=== PATIENT | male | born 1980 | race Caucasian/White ===

== ENCOUNTER 2018-03-06 08:00 | Observation (INO) | payer BC ==
[2018-03-06] MEDS ORDERED: Diltiazem IV* 5 MG/ML 5 ML VIAL (for loading dose/IV Push) (25 MG) ONE (08:17)
[2018-03-06] MEDS ORDERED: Diltiazem IV* 5 MG/ML 5 ML VIAL (for loading dose/IV Push) (25 MG) IV SLOW PU ONE (08:19)
[2018-03-06] MEDS ORDERED: NS 0.9% 1000 ML*IV.FLUID IV ONE (08:25)
--- NOTE | 2018-03-06 08:25 | ED ---
Palpitations / Dysrhythmia - HPI Summary HPI Summary: This patient is a 38 year old M presenting to [facility] accompanied by and mother with a chief complaint of chest tightness since 714 this AM. Pt woke up feeling off, last night his equilibrium was off, this AM right before leaving home sx worsened, came to ED. Pt endorses tingling in his hands and arms , chest tightness, nausea, weakness, daily caffeine use in AM of 8 oz coffee. Pt denies current sx of chest pressure, fever, chills, and recent weight fluctuations. PMHx pinched nerve in neck for which he takes no medication. FHx sister afib, thyroid issues, mother has thyroid issues. - History of Current Complaint Chief Complaint: EDDysrhythmPalp Time Seen by Provider: 03/06/18 08:12 Hx Obtained From: Patient Onset/Duration: Gradual Onset, Lasting Hours Timing: Constant Severity Initially: Moderate Severity Currently: Moderate Character: Fast, Irregular Aggravating: Nothing Alleviating: Nothing Associated Signs & Symptoms: Lightheadedness, Nausea - Allergy/Home Medications Allergies/Adverse Reactions: Allergies Allergy/AdvReac Type Severity Reaction Status Date / Time No Known Allergies Allergy Verified 03/06/18 08:10 Home Medications: Home Medications NK [No Home Medications Reported] 03/06/18 [History Confirmed 03/06/18] PMH/Surg Hx/FS Hx/Imm Hx Endocrine/Hematology History: Denies: Other Endocrine/Hematological Disorders Respiratory History: Denies: Other Respiratory Problems/Disorders Sensory History: Denies: Hx Contacts or Glasses Opthamlomology History: Denies: Hx Contacts or Glasses EENT History: Denies: Hx Deafness Neurological History: Reports: Other Neuro Impairments/Disorders - pinched nerve in neck - Surgical History Surgery Procedure, Year, and Place: none Infectious Disease History: No Infectious Disease History: Denies: Traveled Outside the [place] in Last 30 Days - Family History Known Family History: Positive: Other - thyroid, Afib - Social History Lives: With Family Alcohol Use: None Hx Substance Use: Yes Substance Use Type: Reports: Marijuana Hx Tobacco Use: No Smoking Status (MU): Never Smoked Tobacco Review of Systems Negative: Fever, Chills Negative: Erythema Negative: Sore Throat Positive: Palpitations, Chest Pain - tightness Negative: Shortness Of Breath, Cough Positive: Nausea. Negative: Abdominal Pain, Vomiting Negative: dysuria, hematuria Negative: Myalgia, Edema Negative: Rash Neurological: Other - NEGATIVE: Dizziness All Other Systems Reviewed And Are Negative: Yes Physical Exam - Summary Physical Exam Summary: Constitutional: Well-developed, Well-nourished, Alert. (-) Distressed Skin: Warm, Dry HENT: Normocephalic; Atraumatic Eyes: Conjunctiva normal Neck: Musculoskeletal ROM normal neck. (-) JVD, (-) Stridor, (-) Tracheal deviation Cardio: Irregularly irregular pulse, Heart sounds normal; Intact distal pulses; The pedal pulses are 2+ and symmetric. Radial pulses are 2+ and symmetric. (-) Murmur Pulmonary/Chest wall: Effort normal. (-) Respiratory distress, (-) Wheezes, (-) Rales Abd: Soft, (-), epigastric tenderness, (-) Distension, (-) Guarding, (-) Rebound Musculoskeletal: (-) Edema Lymph: (-) Cervical adenopathy Neuro: Alert, Oriented x3 Psych: Anxious appearing Triage Information Reviewed: Yes Vital Signs On Initial Exam: Initial Vitals Temp Pulse Resp BP Pulse Ox 97.9 F 111 13 151/115 100 03/06/18 08:08 03/06/18 08:08 03/06/18 08:08 03/06/18 08:08 03/06/18 08:08 Vital Signs Reviewed: Yes Diagnostics - Vital Signs Vital Signs Temp Pulse Resp BP Pulse Ox 03/06/18 08:08 97.9 F 111 13 151/115 100 - Laboratory Result Diagrams: 03/06/18 08:21 03/06/18 08:21 Lab Statement: Any lab studies that have been ordered have been reviewed, and results considered in the medical decision making process. - Radiology CXR Xray Interpretation: No Acute Changes Radiology Interpretation Completed By: Radiologist - No active cardiopulmonary disease is noted. Dr. Flores has reviewed this report. - EKG 0811 Cardiac Rate: Tachycardia - 119 EKG Rhythm: Atrial Fibrillation - rapid ST Segment: Normal EKG Interpretation: No STEMI, Rapid atrial fibrillation Re-Evaluation - Re-Evaluation First Eval Re-Evaluation Time: 08:30 Change: Improved - Heart rate down to 90, still appears to be in AFib, chest tightness has resolved, but tingling in hands still present. Course/Dx - Course Course Of Treatment: EKG reveals rapid atrial fibrilation and tachycardia at 119 BPM, no STEMI. CXR was (-). Pt was given ASA, diltiazem, zofran, nl saline. Lactic acid 3.8. Glucose 145. [place] % 8.9 - Diagnoses Provider Diagnoses: Atrial fibrillation with rapid ventricular response, Chest pain - Physician Notifications Discussed Care Of Patient With: Giuliano Lehman Time Discussed With Above Provider: 10:00 Instructed by Provider To: Other - accepted admission - Critical Care Time Critical Care Time: 30-74 min - 35 Discharge - Sign-Out/Discharge Documenting (check all that apply): Patient Departure - Admission - Discharge Plan Condition: Fair Disposition: ADMITTED TO [facility] Referrals: No Primary Care Phys,NOPCP [Primary Care Provider] - - Billing Disposition and Condition Condition: FAIR Disposition: Admitted to [facility]
[2018-03-06] MEDS ORDERED: Ondansetron ODT TAB* 4 MG PO ONE (08:27)
[2018-03-06] MEDS ORDERED: Aspirin 81 mg CHEW TAB* 81 MG TAB.CHEW PO ONE (08:29)
[2018-03-06 08:31] LABS: ABS Basophils 0 10^3/ul (0-0.2); ABS Eosinophils 0.1 10^3/ul (0-0.6); ABS Lymphocytes 2.2 10^3/ul (1.0-4.8); ABS Monocytes 0.6 10^3/ul (0-0.8); ABS Neutrophils 3.5 10^3/ul (1.5-7.7); ABS Nucleated RBC 0 10^3/ul; Eosinophil % 1.5 % (0-6); Hematocrit 46 % (42-52); Lymphocyte % 34.3 % (25-47); Mean Corpuscular HGB Conc 35 g/dl (31-36); Mean Corpuscular Hemoglobin 29 pg (27-31); Mean Corpuscular Volume 84 fL (80-94); Mean Platelet Volume 6.8 um3 (7.4-10.4); Nucleated Red Blood Cells % 0.1; Platelet Count 331 10^3/ul (150-450); Red Blood Count 5.51 10^6/ul (4.00-5.40); Red Cell Distribution Width 14 % (10.5-15); White Blood Count 6.3 10^3/ul (3.5-10.8)
[2018-03-06 08:47] LABS: EGFR Non-African American 75.7 (>60)
[2018-03-06] MEDS ORDERED: Acetaminophen TAB* 325 MG PO PRN (09:47)
[2018-03-06] MEDS ORDERED: Ondansetron INJ* 2 MG/ML VIAL IV PRN (09:47)
[2018-03-06] MEDS ORDERED: Albuterol 2.5 MG/3 ML NEB.SOL* (0.083%) INH PRN (09:47)
[2018-03-06] MEDS ORDERED: Al Hydrox/Mg Hydrox/Simet LIQ* 30 ML UDC PO PRN (09:47)
--- NOTE | 2018-03-06 09:49 | RAD ---
Indication: Tachycardia. Single frontal view of the chest performed at 0855 hours was reviewed. No prior study is available.. No mediastinal shift is noted. Heart is of normal size and configuration. Lung kaufman appear clear. IMPRESSION: NO ACTIVE CARDIOPULMONARY DISEASE IS NOTED.
[2018-03-06] MEDS ORDERED: NS 0.9% 1000 ML* 1,000 ML IV SCH (10:00)
[2018-03-06] MEDS: Apixaban* 5 MG TAB PO SCH ×2 (11:10→21:14)
--- NOTE | 2018-03-06 12:01 | HP ---
CC: Dr. Barajas * ADMISSION HISTORY AND PHYSICAL: DATE OF ADMISSION: 03/06/18 PATIENT OF: Dr. Santiago Lehman, attending physician. PRIMARY CARE PROVIDER: None. ATTENDING HOSPITALIST WHILE PATIENT IN HOSPITAL: Santiago Lehman MD * ( DICTATED BY KORINA MATHEWS) CONSULTING NEGOTIATIONS DIRECTOR: Alejandra Barajas MD CHIEF COMPLAINT: Palpitation. HISTORY OF PRESENT ILLNESS: Mr. Herron is a 38-year-old gentleman, who carries no significant past medical history, who presented to the emergency room earlier this morning with complaints of palpitation that started earlier today. The patient notes that for the past few days, he has not been feeling very well. He feels weak at times, lightheaded, and it feels almost "like he is floating with no gravity." He denies any significant syncope, dizziness, chest pain, headache, or extremity weakness. He got up this morning to use the bathroom and he felt lightheaded, but again denies any chest pain or any other associated symptoms. He rested for a little bit and tried to get up again when he noticed some palpitation and some tightness feeling in his chest. He felt lightheaded; however, denies any syncopal episode or weakness. Given his ongoing symptoms, he called ambulance and presented to [facility] Emergency Room for evaluation. He was noted to have atrial fibrillation with rapid ventricular response at 160s per minute for which he was given a dose of diltiazem 20 mg intravenously. He noticed some improvement; however, he continued to have some palpitation feeling. The patient continued to have atrial fibrillation; however , his ventricular rate had responded and now running in the 70s and 80s per minute. Given his new-onset atrial fibrillation and his symptoms, we were asked to see the patient for further evaluation and to consider admission for observation in telemetry and possible cardioversion after Cardiology consultation. PAST MEDICAL HISTORY: As mentioned above, it was essentially unremarkable. He does note history of "a pinched nerve in his right neck" that bothers him on occasion usually when he moves his neck too much; however, he takes some muscle relaxant and low dose of steroids and usually it goes away. His last episode of that neck issue was about 2 weeks ago, but he is currently not taking any meds for it. PAST SURGICAL HISTORY: None. CURRENT MEDICATIONS: He does not take any medication on a regular basis at home. ALLERGIES: He has no known drug allergies. FAMILY HISTORY: He has family history of sister, who has SVTs and occasional AFib episodes; however, she is not on any rate-modifying medication or any anticoagulation therapy per her mom. He denies any history of coronary artery disease in the family. SOCIAL HISTORY: The patient is a nonsmoker, who drinks alcohol rarely. He drinks 1 to 2 cups of coffee per day. 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 He is and his , Sarah, is the surrogate decision making personnel. REVIEW OF SYSTEMS: See HPI, otherwise 14-point review of systems were examined and they were otherwise negative. PHYSICAL EXAMINATION GENERAL: He is a pleasant, healthy-appearing, middle-aged gentleman, in no acute distress or discomfort at the time of admission. VITAL SIGNS: Revealed blood pressure of 139/86, pulse of 70, respirations of 16 , O2 sat of 100% on 2 L oxygen, and temperature of 97.9. HEENT: Head is normocephalic, atraumatic. Sclerae anicteric. PERRLA. EOMs intact. Oropharynx is pink and moist. NECK: Supple. Trachea midline. No cervical adenopathy, thyromegaly, or JVD. LUNGS: Clear to auscultation bilaterally. HEART: Irregular rate and rhythm. Normal S1 and S2 without rubs, murmurs, or gallops. BACK: Normal curvature. No CVA tenderness. ABDOMEN: Soft, nontender, and nondistended. No hernias, masses, or hepatosplenomegaly. EXTREMITIES: Without cyanosis, clubbing, or edema. NEUROLOGIC: Grossly intact. He is awake, alert, and oriented x4. RECTAL: Deferred at this time. DIAGNOSTIC STUDIES/LAB DATA: CBC with white count of 6300, hemoglobin 16, hematocrit 46, and platelets of 331. His chemistry panel with sodium of 139, potassium 3.7, chloride 105, CO2 of 22, BUN of 20, creatinine of 1.09, his glucose is 145, lactic acid 3.8. LFTs within normal limits. Troponin is 0. T4 is 9 and TSH is pending at the time of admission. Accessory diagnostic data: EKG was done upon presentation to the ED revealed atrial fibrillation with ventricular rate of 112. There are no ST changes. Chest x-ray also done that showed no active cardiopulmonary disease. IMPRESSION: A 38-year-old gentleman with no significant past medical history, who presented to the emergency room with complaints of palpitation and chest tightness, who was found to have new onset of atrial fibrillation initially with a rapid ventricular response, but now with ventricular response in the 70s or 80s after a dose of diltiazem. ASSESSMENT AND PLAN: 1. New-onset atrial fibrillation with rapid ventricular response. The patient will be admitted for observation to telemetry. I have discussed the case with Dr. Barajas, who agreed to see the patient. We will keep him n.p.o. for the possibility of cardioversion later. I also will initiate anticoagulation therapy with Eliquis as of right now. He appears to be hemodynamically stable and have better ventricular rate control at this time, but he continued to have atrial fibrillation. We will obtain a trending series of troponin and repeat EKG as well. 2. History of cervical neuropathy, appears to be stable at this time. The patient has no complaints of neck pain or upper extremity weakness or numbness. 3. DVT prophylaxis. The patient is a low risk and we will encourage early ambulation and he will also be covered with Eliquis for anticoagulation therapy. 4. Code status. He is a full code. TIME SPENT: Approximately 60 minutes was spent admitting this patient with 50% of this time obtaining history and performing physical exam. I have discussed the case with my attending, who agreed to plan of care, and we will follow him up accordingly. KORINA MATHEWS [id number]/[facility] #: [id number] ANABELA
[2018-03-06] MEDS ORDERED: fentaNYL* 50 MCG/ML 2 ML VIAL (100 MCG VIAL) ONE (13:02)
[2018-03-06] MEDS ORDERED: Naloxone* 0.4 MG/ML 1 ML VIAL ONE (13:02)
[2018-03-06] MEDS ORDERED: Midazolam* 1 MG/ML 10 ML VIAL (10 MG) ONE (13:02)
[2018-03-06] MEDS ORDERED: Flumazenil* 0.1 MG/ML 5 ML MDV ONE (13:03)
--- NOTE | 2018-03-06 16:10 | TEE ---
Patient: ANTONIO ERICKSON [facility] Rec#: [id number] : 1980 Date: 03/06/2018 Age: 38y Height: 180.34 cm / 71.0 in Weight: 97.52 kg / 214.9 lbs Sex: M BSA: 2.17 Room#: 452 Type: Inpatient Referring: Rama Obrien Performing: Alejandra Barajas MD Reading: Alejandra Barajas MD Package Lift Operator: Trina Ward RDCS Nurse: Marley Araiza RN Transesophageal Echocardiogram Indication: A-fib BP: 130/71 HR: 106 Rhythm: A-Fib Findings History: Palpitations, new A-fib, cervical neuropathy. Technical Comments: The study quality is good. Completed at 1520. Left Ventricle: The left ventricular chamber size is normal. Global left ventricular wall motion and contractility are within normal limits. The left ventricle appears hyperdynamic. The estimated ejection fraction is greater than 65%. Left Atrium: There is no thrombus visualized in the left atrial appendage. Normal velocity noted. Right Ventricle: The right ventricular cavity size is normal. The right ventricular global systolic function is normal. Right Atrium: The right atrial cavity size is normal. There is no patent foramen ovale visualized. A patent foramen ovale is not demonstrated with color Doppler and agitated contrast. Aortic Valve: The aortic valve is trileaflet. There is no evidence of aortic regurgitation. There is no evidence of aortic stenosis. Mitral Valve: The mitral valve leaflets appear normal. There is mild mitral regurgitation. Multiple jets noted. There is no evidence of mitral stenosis. Tricuspid Valve: The tricuspid valve leaflets are normal. There is trace tricuspid regurgitation. Unable to estimate the right ventricular systolic pressure. There is no tricuspid stenosis. Pulmonic Valve: The pulmonic valve appears normal. There is a trace pulmonic regurgitation. There is no pulmonic stenosis. Pericardium: The pericardium appears normal. Aorta: There is no dilatation of the ascending aorta. There is no dilatation of the aortic arch. There is no dilation of the aortic root. Pulmonary Artery: The main pulmonary artery appears normal. Venous: The bicaval view was obtained and appears normal. The pulmonary veins appear normal in size. 3 out of 4 seen. The flow pattern of the pulmonary veins appear normal. [place] Procedures: History and physical as well as labs were reviewed. The patient was in a fasting state. Risks and benefits of the procedure, including alternatives, were discussed and written informed consent was obtained. The patient and/or their health care education courses sales representative expressed understanding of the procedure, risks and benefits. Baseline and continuous monitoring of blood pressure, heart rate, pulse oximetry and heart rhythm was performed throughout the procedure. The appropriate time-out procedure was performed as per [facility] protocol. The patient was placed in the left lateral decubitus position. The patient's posterior pharynx was anesthetized with 20ml of 2% viscous lidocaine. The patient received IV Midazolam with a total dose of10mg. The patient received IV Fentanyl with a total dose of 75mcg. An oral bite block was inserted for protection of oral dentition. The multiplane transesophageal echocardiogram probe was inserted through the posterior oropharynx and advanced into the esophagus without difficulty. Multiple 2D images were obtained of the heart and its related structures. Color flow Doppler was used for evaluation. Spectral Doppler was also used. The atrial septum was interrogated with color flow Doppler. At the conclusion of the procedure the probe was removed with continuous suction without complications. The patient tolerated the procedure with no apparent complications. Conclusions The left ventricular chamber size is normal. Global left ventricular wall motion and contractility are within normal limits. The left ventricle appears hyperdynamic. The estimated ejection fraction is greater than 65%. The right ventricular global systolic function is normal. There is no thrombus visualized in the left atrial appendage. There is no patent foramen ovale visualized. All valves appear structurally normal with normal excursion. There is mild mitral regurgitation. There is trace tricuspid regurgitation. NOTE: The patient was in atrial fibrillation at the start of the study, converted to sinus rhythm during the study. No prior echo to compare. Measurements Name Value Normal Range Aortic Annulus 2 cm (1.4 - 2.6) Ao root diameter (2D) 3.5 cm (2.1 - 3.5) Ascending Ao 2.7 cm (2.1 - 3.4) Name Value Normal Range MV E-wave Vmax 0.7 m/sec - MV deceleration time 217 msec - MV A-wave Vmax 0.5 m/sec - MV E:A ratio 1.42 ratio -
--- NOTE | 2018-03-06 21:59 | CONS ---
CC: Hospitalist Service CONSULTATION REPORT: DATE OF CONSULT: 03/06/18 REASON FOR CONSULT: Atrial fibrillation. CHIEF COMPLAINT: Weakness. HISTORY OF PRESENT ILLNESS: Mr. Herron was examined with his . He is a 38- year- old gentleman who has been very healthy. The patient states for 5 or 6 years he will have intermittent episodes where he will just feel a bit off-kilter and a little weak and lightheaded. This had occurred for the last 2 or 3 days this week and this morning he awoke feeling not quite himself and in the shower he became lightheaded and near syncopal. He then became aware that his heart rate was up as well. The patient presented to the emergency room and was found to be in atrial fibrillation with a rapid ventricular rate. The patient had 1 alcoholic beverage over the weekend. He does not drink excessively or frequently. He denies any recent use of excessive caffeine or caffeine analog products. His says he does not snore and only occasionally if he is very over tired, will he make any noises in the middle of the night. He does have a neck problem for which he has seen a chiropractor for years and he thinks there may be some association of the neck problem and the weakness. The patient has a past medical history of a pinched nerve in the neck followed by a chiropractor. PAST MEDICAL HISTORY: Negative for hypertension, diabetes, or diseases as a child. MEDICATIONS: He is on no medications at home. ALLERGIES: He has no known drug allergies. FAMILY HISTORY: Significant in that he has a sister with history of supraventricular tachycardia and paroxysmal AFib. There is no history of underlying atherosclerotic heart disease or other congenital heart disease. SOCIAL HISTORY: The patient works as an intern architect. He is . Rare alcohol intake. One to two cups of coffee a day. He is very physically active. Does a lot of activities with lifting. REVIEW OF SYSTEMS: A 14-point review of systems, see history of present illness. No recent fevers, chills, sweats. No coughing, change in bowel or bladder habits. He denies any trouble swallowing, change in appetite. No history of constipation or diarrhea. No hematuria or dysuria. He denies orthopnea, palpitations, racing of the heart. I could not get a clear history of vertigo, although his history of present illness at times is suspicious for this. His has never seen him walking as if he is off balance, although he describes feeling off balance. He denies any nausea or vomiting with these symptoms. All other 14-point review of systems was negative. PHYSICAL EXAM: The patient is 5 feet 11, weighs 217 pounds with a BMI of 30. On arrival to the emergency room, the patient's blood pressure was 151/115, pulse was 160 beats a minute and irregularly irregular, oxygen saturation 100% on room air and temperature 97.9. At the time I saw him, his blood pressure was 130/71, pulse was in the 80s, oxygen saturation 99% and afebrile. General appearance: Mild to moderately overweight young adult man in no acute distress. Psychologically pleasant and cooperative. Neurologically awake, alert and oriented to person, place and time. Cranial nerves II through XII intact. Grossly normal sensory and motor function in the upper and lower extremities and normal gait. Skin: Warm, dry. No cyanosis or rashes. HEENT: Pupils are equal and round. Mucous membranes moist. Neck without increased JVP appreciated. Good carotid pulses. No audible bruits. Lungs are clear with good effort. No wheezes, rales or rhonchi. Coronary: S1, S2 irregularly irregular without murmurs or rubs. Abdomen: Flat. Active bowel sounds. Soft, nontender. No hepatosplenomegaly or masses. Lower extremities are free of edema and warm with palpable posterior tibial pulses that were symmetrical. DIAGNOSTIC STUDIES/LAB DATA: The 12-lead ECG in the emergency room showed atrial fibrillation with a ventricular rate of 120 beats a minute, QRS axis of + 60, normal interventricular conduction times, normal ST segments. Chest x-ray from 03/06/18 showed no active disease. Labs showed sodium 139, potassium 3.7, chloride 105, bicarb 22, glucose 145, BUN 20, creatinine 1.09, lactic acid 3.8, ALT of 21. Troponin #1 of 0.00, troponin #2 of 0.00. TSH 0.85, free T4 of 9.0. D-dimer less than 200. White count 6.3, hematocrit 46, platelets 331,000. In summary, Олег Herron is a 38-year-old gentleman with a 6-year history of intermittent lightheadedness, today feeling near syncopal and found to be in atrial fibrillation, mildly tachycardic ventricular response with up to a 2 or 3 day history of feeling off-kilter. I planned for transesophageal echo-guided cardioversion as it is uncertain if he has been in this for a few days or not, the patient has not seen doctors in years as he is perceived he has been healthy. His blood pressure was high here which could give him a CHADS score of 1 as opposed to 0. He is very young. The patient underwent transesophageal echo and during the procedure, converted to sinus rhythm. His heart did not show any significant structural abnormalities. He had a normal ejection fraction, some mild valvular leaks and no evidence of underlying congenital or structural heart disease. In summary, Олег Herron is a 38-year-old gentleman who presented in atrial fibrillation with a rapid ventricular rate and feeling dizzy and lightheaded who has now converted to sinus rhythm during transesophageal echo. Олег was hypertensive on arrival to the emergency department but he was anxious, but he also has elevated sugar levels at a young age and with centripetal obesity. Олег is very young to have paroxysmal AFib and his triggers are uncertain. Differential would include metabolic syndrome. He may have some mild sleep apnea as well based on conversations with his . The intermittent episodes of feeling off-kilter could be related to AFib, but it could also be related to glucose levels and as he has not followed with a primary care physician we do not have any labs or notes to corroborate. PLAN/RECOMMENDATIONS: It would be safest to leave Олег for a month on oral anticoagulants. I would advise Олег to eat a heart healthy diet, watching concentrated sweets and carbohydrates and get a repeated fasting glucose level in the future. I see no contraindications to regular exercise which Олег was concerned about, but he may want to proceed with more regular exercise. An outpatient sleep study or at least an overnight oximetry may be of benefit for Олег to screen for the possibility of sleep apnea. The pinched nerve could change vagal tone and be related to the AFib, but it is uncertain. From a cardiac standpoint, I think he should follow up with Cardiology within the next month. We could consider getting an outpatient event monitor as his symptoms appear to be nearly asymptomatic. Additional recommendations can be made pending his clinical course and response to the above measures. Thank you for allowing me to assist in Олег's care. [id number]/[facility] #: [id number] [facility]ITALBhargavi
[2018-03-07 06:58] LABS: ABS Basophils 0 10^3/ul (0-0.2); ABS Eosinophils 0.1 10^3/ul (0-0.6); ABS Lymphocytes 2.2 10^3/ul (1.0-4.8); ABS Monocytes 0.6 10^3/ul (0-0.8); ABS Neutrophils 4.8 10^3/ul (1.5-7.7); ABS Nucleated RBC 0 10^3/ul; Eosinophil % 1.5 % (0-6); Hematocrit 42 % (42-52); Hemoglobin 14.5 g/dl (14.0-18.0); Lymphocyte % 28.8 % (25-47); Mean Corpuscular HGB Conc 35 g/dl (31-36); Mean Corpuscular Hemoglobin 29 pg (27-31); Mean Corpuscular Volume 84 fL (80-94); Mean Platelet Volume 6.6 um3 (7.4-10.4); Nucleated Red Blood Cells % 0; Platelet Count 282 10^3/ul (150-450); Red Blood Count 4.96 10^6/ul (4.00-5.40); Red Cell Distribution Width 14 % (10.5-15); White Blood Count 7.8 10^3/ul (3.5-10.8)
[2018-03-07 07:23] LABS: EGFR Non-African American 86.6 (>60)
[2018-03-07] MEDS: Apixaban* 5 MG TAB PO SCH (08:53)
[2018-03-07 12:58] VITALS: BP 125/80
--- NOTE | 2018-03-08 04:47 | DS ---
CC: Dr. Sauer; Dr. Barajas * DISCHARGE SUMMARY: DATE OF ADMISSION: 03/06/18 DATE OF DISCHARGE: 03/07/18 PRIMARY CARE PROVIDER: Dr. Sauer. INSTRUMENT ASSEMBLER: Dr. Barajas. PRIMARY DIAGNOSIS: Atrial fibrillation. SECONDARY DIAGNOSIS: Suspicion for obstructive sleep apnea. MEDICATIONS ON DISCHARGE: Include apixaban 5 mg twice daily for 1 month. PROCEDURES PERFORMED DURING THE HOSPITAL STAY: Transthoracic echocardiogram, impression: Estimated LVEF is greater than 65%. The right ventricular global systolic function is normal. There is no thrombus visualized in the left atrial appendage and there is no patent foramen ovale. All the valves appear structurally normal. There is mild mitral regurgitation and trace tricuspid regurgitation. PERTINENT LABORATORY DATA: Troponin I of 0.00 on 3 consecutive checks. TSH is 0.85 with a T4 of 9.0. HISTORY OF PRESENT ILLNESS AND HOSPITAL COURSE: This is a relatively healthy 38 - year-old gentleman with no known past medical history, who presented to the hospital with sensation of palpitations, found in rapid atrial fibrillation. Ventricular rate is as high as 124. Received 1 dose of diltiazem 20 mg IV with control of his rate. He underwent a transesophageal echocardiogram with Dr. Barajas and he spontaneously converted to normal sinus rhythm during the procedure, did not receive DC cardioversion. He had resolution of his symptoms after his rates have been controlled and was back in normal sinus rhythm. It is unclear what prompted his new-onset atrial fibrillation. He drinks minimal alcohol, does not smoke, has a little caffeine diet. Denies any other illicits. There is concern for obstructive sleep apnea. He does snore and has been known to wake himself suddenly feeling short of breath. A referral was made to Dr. Mejia's office for a sleep study, an appointment was made by this author. A followup was additionally made with Dr. Barajas upon his discharge as well as with Dr. Belcher. His glucose on presentation was 145; however, his fasting on the following day was 91. Additional attention to metabolic syndrome should be made. He is to continue on apixaban as indicated above for 1 additional month. 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 He was counseled on avoiding heavy exertion for the next 2 weeks as well as avoiding caffeine as well as alcohol for the next month. He acknowledged all understanding. At followup, please; 1. Ensure patient follows for sleep study as well as follow up with Cardiology. 2. Consider evaluation for diabetes. 3. No other specific labs or vitals that need followup. Reasons to return to the hospital including but not limited to recurrent or worsening symptoms including palpitations, chest pain, shortness of breath, lightheadedness, loss of consciousness or near loss of consciousness, nausea, vomiting, bleeding from any source, severe headache, diplopia, inability to obtain or tolerate medications were discussed with the patient. He acknowledged understanding. TIME SPENT: Greater than 75 minutes was spent on the discharge of the patient, greater than half was spent [id number] with the patient. [id number]/[facility] #: [id number] ANABELA
== END 2018-03-07 12:49 | disposition home or self-care (01) ==
LOC: ED 08:00 → MEDTELE 09:47
PROVIDERS: ADMIT Internal Medicine; ATTEND Internal Medicine
DX: I48.91 Unspecified atrial fibrillation (principal); R42 Dizziness and giddiness; R11.0 Nausea; R00.2 Palpitations; R07.9 Chest pain, unspecified; R53.83 Other fatigue; G54.2 Cervical root disorders, not elsewhere classified
CPT/HCPCS: 36415; 71045; 80048; 80053; 83605; 84436; 84443; 84484; 85025; 85379; 86618; 93005; 93312; 93325; 96374; 99156; 99157; 99284; A9270-GY; G0378; J2250; J2310; J3010